=== PATIENT | female | born 1980 | race Caucasian/White ===

== ENCOUNTER 2016-07-27 16:08 | Emergency (ER) | payer OTHER ==
[2016-07-27 16:16] VITALS: BMI 26.6
[2016-07-27 16:17] VITALS: BP 108/69; PULSE 82; TEMP 97.7; O2SAT 99
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
[2016-07-27 18:00] VITALS: RESP 18
== END 2016-07-27 18:00 | disposition home or self-care (01) ==
LOC: C.ER 16:08
DX: S39.012A Strain of muscle, fascia and tendon of lower back, initial encounter (principal); V49.88XA Car occupant (driver) (passenger) injured in other specified transport accidents, initial encounter; Y92.410 Unspecified street and highway as the place of occurrence of the external cause

== ENCOUNTER 2016-08-21 13:12 | Emergency (ER) | payer OTHER ==
[2016-08-21 13:13] VITALS: BMI 26.6
[2016-08-21 13:26] VITALS: BP 118/80; PULSE 66; RESP 16; TEMP 97.5; O2SAT 99
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
== END 2016-08-21 14:14 | disposition home or self-care (01) ==
LOC: C.ER 13:12
DX: M54.5 Low back pain (principal); M21.372 Foot drop, left foot; R26.9 Unspecified abnormalities of gait and mobility
CPT/HCPCS: 96372; 99283; J1885